=== PATIENT | male | born 1960 | race Caucasian/White ===

== ENCOUNTER 2021-04-13 18:07 | Inpatient (IN) | payer BC ==
[~2021-04-13] VITALS: Ht 182.9 cm; Wt 76.0 kg
--- NOTE | 2021-04-13 18:10 | NUR ---
Pt brought in by yuliana from [facility] for detox. Last drink 04/12/21. tremors present, no seizure reported. Pt [id number]
[2021-04-13] MEDS ORDERED: LISI40TA9 PO (18:20)
[2021-04-13] MEDS ORDERED: ATOR20TA37 PO (18:20)
[2021-04-13] MEDS ORDERED: MAGNESIUM SULFATE 1 GM, THIAMINE 100 MG, FOLIC ACID 1 MG, MVI ADULT 10 ML in SODIUM CHL... IV ONE (18:30)
[2021-04-13] MEDS ORDERED: SODIUM CHLORIDE FLUSH 10ML SYR IVF ONE (18:30)
[2021-04-13] MEDS ORDERED: CHLORDIAZEPOXIDE 25 MG CAPSULE PO ONE (18:30)
--- NOTE | 2021-04-13 18:34 | NUR ---
dara tran at bedside for eval
--- NOTE | 2021-04-13 18:47 | NUR ---
report to dany garcia
[2021-04-13 18:56] LABS: BASOPHILS % (AUTO) 0 % (0-1); EOSINOPHILS % (AUTO) 0 % (1-7); LYMPHOCYTES % (AUTO) 14 % (22-44); MEAN CORPUSCULAR HEMOGLOBIN 37.9 pg (27.5-34.5); MEAN CORPUSCULAR HGB CONC 34.6 g/dL (33.2-36.2); MEAN PLATELET VOLUME 8.2 fL (7.4-10.4); MONOCYTES % (AUTO) 8 % (2-9); NEUTROPHILS % (AUTO) 78 % (42-75); PLATELET COUNT 74 x10^3/uL (130-400); RED CELL DISTRIBUTION WIDTH 22.7 % (9.4-14.8)
--- NOTE | 2021-04-13 19:00 | NUR ---
REPORT FROM YAMILET ASHTON
[2021-04-13 19:02] LABS: ALANINE AMINOTRANSFERASE 21 U/L (12-78); ALBUMIN 3.3 g/dL (3.4-5.0); ANION GAP 12 mmol/L (5-15); CALCIUM 8.4 mg/dL (8.5-10.1); CHLORIDE 89 mmol/L (98-107); CREATININE 0.98 mg/dL (0.7-1.3)
[2021-04-13 19:05] LABS: ALKALINE PHOSPHATASE 140 U/L (45-117); BILIRUBIN,TOTAL 3.4 mg/dL (0.2-1.0); TOTAL PROTEIN 6.7 g/dL (6.4-8.2)
--- NOTE | 2021-04-13 19:30 | NUR ---
PT PROVIDED SANDWICH, OK PER ERP. PT DENIES ANY ADDITIONAL NEEDS AT THIS TIME. CALL LIGHT AND PERSONAL BELONGINGS WITHIN REACH.
[2021-04-13] MEDS ORDERED: LORazepam 2 MG/ML, 1ML ONE ×2 (19:57→21:17)
[2021-04-13] MEDS ORDERED: LORazepam 2 MG/ML, 1ML IVPush ONE (20:00)
--- NOTE | 2021-04-13 20:12 | NUR ---
HOSPITALIST AT BEDSIDE
[2021-04-13] MEDS ORDERED: CHLORDIAZEPOXIDE 10 MG CAPSULE PO SCH (20:30)
[2021-04-13] MEDS ORDERED: LORazepam 2 MG/ML, 1ML IV PRN ×3 (20:30)
[2021-04-13] MEDS ORDERED: THIAMINE 200 MG in DEXTROSE 5% 50 ML IVPB ONE (20:30)
[2021-04-13] MEDS ORDERED: GUAIFENESIN/DM 200-20MG, 10ML UDC PO PRN (20:30)
[2021-04-13] MEDS ORDERED: CHLORDIAZEPOXIDE 25 MG CAPSULE PO SCH (20:30)
[2021-04-13] MEDS ORDERED: ALUMINUM/MAG/SIMETHICONE 30 ML UDC PO PRN (20:30)
[2021-04-13] MEDS ORDERED: MELATONIN 5 MG TABLET PO PRN (20:30)
[2021-04-13] MEDS ORDERED: PROMETHAZINE 25 MG/ML, 1ML IM PRN (20:30)
[2021-04-13] MEDS ORDERED: ONDANSETRON 2MG/ML, 2ML IVPush PRN (20:30)
[2021-04-13] MEDS ORDERED: LABETALOL 5MG/ML, 20ML IVPush PRN (20:30)
--- NOTE | 2021-04-13 20:47 | NUR ---
US AT BEDSIDE
[2021-04-13] MEDS: LORazepam 2 MG/ML, 1ML IV PRN (21:19)
--- NOTE | 2021-04-13 21:22 | NUR ---
PT PLACED ON 2L O2 VIA NASAL CANNULA, ROOM AIR SAT 89% WHILE SLEEPING. O2 SAT NOW IMPROVED TO 96% ON 2L
--- NOTE | 2021-04-13 21:37 | NUR ---
PT PROVIDED URINAL PER REQUEST, IN ATTEMPT TO URINATE, PT URINATED ALL OVER SELF. REFUSING TO ALLOW THIS RN TO REMOVE WET SOILED CLOTHING AT THIS TIME. WILL RE-EVAL LATER. PT NOW RESTING CALMLY ON GURNEY WITH EYES CLOSED.
--- NOTE | 2021-04-13 22:04 | NUR ---
Pt to be admitted to [facility], room 502. Report called to DIMAS ASHTON.
[2021-04-13] MEDS: ATORVASTATIN 20 MG TABLET PO SCH (22:37)
[2021-04-13] MEDS: ENOXAPARIN 40 MG/0.4 ML SQ SCH (22:37)
[2021-04-13] MEDS: DIAZEPAM 10 MG TABLET PO SCH ×2 (22:37→22:38)
[2021-04-13 22:42] VITALS: BP 159/69
[2021-04-14 00:10] LABS: CREATININE,URINE RANDOM 28.6 mg/dL
[2021-04-14 01:01] VITALS: BP 157/92
[2021-04-14] MEDS: DIAZEPAM 10 MG TABLET PO SCH ×4 (03:06→20:28)
[2021-04-14 05:07] LABS: BASOPHILS % (AUTO) 1 % (0-1); EOSINOPHILS % (AUTO) 0 % (1-7); LYMPHOCYTES % (AUTO) 26 % (22-44); MEAN CORPUSCULAR HEMOGLOBIN 38.5 pg (27.5-34.5); MEAN CORPUSCULAR HGB CONC 34.8 g/dL (33.2-36.2); MEAN PLATELET VOLUME 8.6 fL (7.4-10.4); MONOCYTES % (AUTO) 8 % (2-9); NEUTROPHILS % (AUTO) 65 % (42-75); PLATELET COUNT 63 x10^3/uL (130-400); RED BLOOD COUNT 2.97 x10^6/uL (4.38-5.82); RED CELL DISTRIBUTION WIDTH 23.5 % (9.4-14.8)
[2021-04-14 05:17] LABS: INTERNATIONAL NORMALIZED RATIO 1.1 (0.93-1.1); PROTHROMBIN TIME 11.7 Seconds (9.6-11.5)
[2021-04-14 05:23] LABS: CHLORIDE 95 mmol/L (98-107)
[2021-04-14 05:33] LABS: ALANINE AMINOTRANSFERASE 21 U/L (12-78); ALBUMIN 2.9 g/dL (3.4-5.0); ALKALINE PHOSPHATASE 122 U/L (45-117); ANION GAP 9 mmol/L (5-15); BILIRUBIN,TOTAL 3.8 mg/dL (0.2-1.0); CALCIUM 8.1 mg/dL (8.5-10.1); CREATININE 0.59 mg/dL (0.7-1.3); TOTAL PROTEIN 6.2 g/dL (6.4-8.2)
[2021-04-14 05:58] LABS: <PLATELET ESTIMATE> DECREASED; <PLT MORPHOLOGY> NORMAL PLT MORPH; ANISOCYTOSIS 1+; STOMATOCYTES 1+
[2021-04-14] MEDS ORDERED: POTASSIUM CHLORIDE 20 MEQ, MAGNESIUM SULFATE 2 GM, THIAMINE 200 MG, FOLIC ACID 1 MG in ... IV SCH (06:00)
[2021-04-14 07:04] VITALS: BP 162/107
[2021-04-14] MEDS ORDERED: DIAZEPAM 5 MG TABLET ONE (08:37)
[2021-04-14] MEDS: LISINOPRIL 40 MG TABLET PO SCH (08:52)
[2021-04-14] MEDS ORDERED: POTASSIUM CHLORIDE 20 MEQ TAB.ER.PRT PO ONE (09:00)
[2021-04-14] MEDS ORDERED: MAGNESIUM SULFATE PMX 4GM/100M 100 ML IVPB ONE (09:00)
[2021-04-14] MEDS: NICOTINE 21 MG/24 HR PATCH.TD24 TD SCH (10:30)
[2021-04-14] MEDS: LORazepam 2 MG/ML, 1ML IV PRN ×4 (10:33→22:15)
[2021-04-14 12:13] VITALS: BP 112/77
[2021-04-14 19:13] VITALS: BP 122/81
[2021-04-14] MEDS: ATORVASTATIN 20 MG TABLET PO SCH (20:29)
[2021-04-14] MEDS: ENOXAPARIN 40 MG/0.4 ML SQ SCH (20:31)
[2021-04-15 00:57] VITALS: BP 129/90
[2021-04-15] MEDS: LORazepam 2 MG/ML, 1ML IV PRN (01:52)
[2021-04-15] MEDS ORDERED: LOPERAMIDE 2 MG CAPSULE PO PRN ×3 (05:00→10:30)
[2021-04-15 06:18] VITALS: BP 133/88
[2021-04-15] MEDS ORDERED: DIAZEPAM 5 MG TABLET ONE (06:20)
[2021-04-15] MEDS: POTASSIUM CHLORIDE 20 MEQ, MAGNESIUM SULFATE 2 GM, THIAMINE 200 MG, FOLIC ACID 1 MG in ... IV SCH (06:27)
[2021-04-15] MEDS: DIAZEPAM 10 MG TABLET PO SCH ×3 (06:28→18:29)
[2021-04-15] MEDS ORDERED: MAGNESIUM SULFATE PMX 4GM/100M 100 ML IVPB ONE (09:30)
[2021-04-15 09:45] VITALS: BP 133/89
[2021-04-15] MEDS: NICOTINE 21 MG/24 HR PATCH.TD24 TD SCH (09:51)
[2021-04-15] MEDS: LISINOPRIL 40 MG TABLET PO SCH (09:51)
[2021-04-15] MEDS: THIAMINE 100 MG in DEXTROSE 5% 50 ML IVPB SCH (09:52)
[2021-04-15 10:05] LABS: BASOPHILS % (AUTO) 1 % (0-1); EOSINOPHILS % (AUTO) 1 % (1-7); LYMPHOCYTES % (AUTO) 26 % (22-44); MEAN CORPUSCULAR HEMOGLOBIN 38.3 pg (27.5-34.5); MEAN CORPUSCULAR HGB CONC 34.3 g/dL (33.2-36.2); MEAN PLATELET VOLUME 9.2 fL (7.4-10.4); MONOCYTES % (AUTO) 8 % (2-9); NEUTROPHILS % (AUTO) 64 % (42-75); PLATELET COUNT 56 x10^3/uL (130-400); RED BLOOD COUNT 2.87 x10^6/uL (4.38-5.82); RED CELL DISTRIBUTION WIDTH 23.4 % (9.4-14.8)
[2021-04-15 10:09] LABS: ANION GAP 7 mmol/L (5-15); CALCIUM 8.3 mg/dL (8.5-10.1); CHLORIDE 100 mmol/L (98-107); CREATININE 0.65 mg/dL (0.7-1.3)
[2021-04-15 13:51] VITALS: BP 122/79
[2021-04-15] MEDS: POTASSIUM CHLORIDE 20 MEQ TAB.ER.PRT PO SCH (17:11)
[2021-04-15 19:22] VITALS: BP 127/88
[2021-04-15] MEDS: ATORVASTATIN 20 MG TABLET PO SCH (20:31)
[2021-04-15] MEDS: ENOXAPARIN 40 MG/0.4 ML SQ SCH (20:31)
[2021-04-16 02:34] VITALS: BP 117/77
[2021-04-16 05:08] LABS: ALBUMIN 2.4 g/dL (3.4-5.0); ANION GAP 5 mmol/L (5-15); CALCIUM 8.8 mg/dL (8.5-10.1); CHLORIDE 104 mmol/L (98-107)
[2021-04-16 05:13] LABS: ALANINE AMINOTRANSFERASE 17 U/L (12-78); ALKALINE PHOSPHATASE 94 U/L (45-117); BILIRUBIN,TOTAL 0.8 mg/dL (0.2-1.0); CREATININE 0.51 mg/dL (0.7-1.3); TOTAL PROTEIN 5.6 g/dL (6.4-8.2)
[2021-04-16 05:14] LABS: BASOPHILS % (AUTO) 1 % (0-1); EOSINOPHILS % (AUTO) 1 % (1-7); LYMPHOCYTES % (AUTO) 37 % (22-44); MEAN CORPUSCULAR HEMOGLOBIN 38.4 pg (27.5-34.5); MEAN CORPUSCULAR HGB CONC 33.9 g/dL (33.2-36.2); MEAN PLATELET VOLUME 10.3 fL (7.4-10.4); MONOCYTES % (AUTO) 8 % (2-9); NEUTROPHILS % (AUTO) 52 % (42-75); PLATELET COUNT 60 x10^3/uL (130-400); RED BLOOD COUNT 2.59 x10^6/uL (4.38-5.82); RED CELL DISTRIBUTION WIDTH 22.9 % (9.4-14.8)
[2021-04-16] MEDS: POTASSIUM CHLORIDE 20 MEQ, MAGNESIUM SULFATE 2 GM, THIAMINE 200 MG, FOLIC ACID 1 MG in ... IV SCH (05:34)
[2021-04-16] MEDS: POTASSIUM CHLORIDE 20 MEQ TAB.ER.PRT PO SCH ×2 (07:57→16:35)
[2021-04-16] MEDS: NICOTINE 21 MG/24 HR PATCH.TD24 TD SCH (07:57)
[2021-04-16] MEDS: LISINOPRIL 40 MG TABLET PO SCH (07:57)
[2021-04-16] MEDS: LORazepam 0.5MG TABLET PO PRN ×4 (07:57→20:19)
[2021-04-16] MEDS ORDERED: LORazepam 1MG TABLET PO PRN ×3 (08:00)
[2021-04-16 08:09] VITALS: BP 138/91
[2021-04-16] MEDS: THIAMINE 100 MG in DEXTROSE 5% 50 ML IVPB SCH (09:01)
[2021-04-16 12:58] VITALS: BP 140/97
[2021-04-16 19:05] VITALS: BP 158/99
[2021-04-16] MEDS: ENOXAPARIN 40 MG/0.4 ML SQ SCH (20:15)
[2021-04-16] MEDS: ATORVASTATIN 20 MG TABLET PO SCH (20:19)
[2021-04-17] MEDS: LORazepam 0.5MG TABLET PO PRN ×3 (01:17→09:37)
[2021-04-17 01:20] VITALS: BP 162/97
[2021-04-17 06:08] LABS: BASOPHILS % (AUTO) 1 % (0-1); EOSINOPHILS % (AUTO) 1 % (1-7); LYMPHOCYTES % (AUTO) 30 % (22-44); MEAN CORPUSCULAR HEMOGLOBIN 38.4 pg (27.5-34.5); MEAN PLATELET VOLUME 10.1 fL (7.4-10.4); MONOCYTES % (AUTO) 8 % (2-9); NEUTROPHILS % (AUTO) 60 % (42-75); PLATELET COUNT 72 x10^3/uL (130-400); RED CELL DISTRIBUTION WIDTH 23.7 % (9.4-14.8)
[2021-04-17 06:19] LABS: ALANINE AMINOTRANSFERASE 24 U/L (12-78); ALBUMIN 2.7 g/dL (3.4-5.0); ANION GAP 6 mmol/L (5-15); CALCIUM 8.8 mg/dL (8.5-10.1); CHLORIDE 101 mmol/L (98-107); CREATININE 0.45 mg/dL (0.7-1.3)
[2021-04-17 06:21] LABS: ALKALINE PHOSPHATASE 103 U/L (45-117); BILIRUBIN,TOTAL 0.7 mg/dL (0.2-1.0); TOTAL PROTEIN 6.3 g/dL (6.4-8.2)
[2021-04-17 08:36] VITALS: BP 143/84
[2021-04-17] MEDS: NICOTINE 21 MG/24 HR PATCH.TD24 TD SCH (08:40)
[2021-04-17] MEDS: POTASSIUM CHLORIDE 20 MEQ TAB.ER.PRT PO SCH (08:40)
[2021-04-17] MEDS: LISINOPRIL 40 MG TABLET PO SCH (08:40)
[2021-04-17] MEDS ORDERED: LOPE2CAP PO (09:01)
[2021-04-17] MEDS: THIAMINE 100 MG in DEXTROSE 5% 50 ML IVPB SCH (09:37)
[2021-04-17] MEDS ORDERED: MAGNESIUM SULFATE PMX 4GM/100M 100 ML IVPB ONE (11:00)
[2021-04-17 11:42] VITALS: BP 133/87
[2021-04-17 12:58] VITALS: BP 117/79
[2021-04-17] MEDS: LORazepam 1MG TABLET PO PRN ×2 (14:04→20:01)
[2021-04-17 18:31] VITALS: BP 139/83
[2021-04-17] MEDS: ENOXAPARIN 40 MG/0.4 ML SQ SCH (20:01)
[2021-04-17] MEDS: ATORVASTATIN 20 MG TABLET PO SCH (20:01)
[2021-04-18 00:25] VITALS: BP 132/83
[2021-04-18] MEDS: LORazepam 0.5MG TABLET PO PRN ×2 (00:44→09:05)
[2021-04-18 04:36] LABS: ALBUMIN 2.6 g/dL (3.4-5.0); ANION GAP 6 mmol/L (5-15); CALCIUM 8.8 mg/dL (8.5-10.1); CHLORIDE 100 mmol/L (98-107)
[2021-04-18 04:40] LABS: ALANINE AMINOTRANSFERASE 23 U/L (12-78); ALKALINE PHOSPHATASE 97 U/L (45-117); BILIRUBIN,TOTAL 0.7 mg/dL (0.2-1.0); CREATININE 0.51 mg/dL (0.7-1.3); TOTAL PROTEIN 6.4 g/dL (6.4-8.2)
[2021-04-18 06:29] VITALS: BP 137/90
[2021-04-18] MEDS: LISINOPRIL 40 MG TABLET PO SCH (09:05)
[2021-04-18] MEDS: THIAMINE 100 MG in DEXTROSE 5% 50 ML IVPB SCH (09:06)
[2021-04-18] MEDS: NICOTINE 21 MG/24 HR PATCH.TD24 TD SCH (09:06)
== END 2021-04-18 13:05 | DRG 92 ==
LOC: ED 20:38 → EDIP 21:14 → 5SO 22:19 → 3N 04-15 11:58 → DCLOUNGE 04-18 13:02
PROVIDERS: ADMIT Internal Medicine; ATTEND Hospitalist
DX: R25.1 Tremor, unspecified (principal); E87.1 Hypo-osmolality and hyponatremia; F10.139 Alcohol abuse with withdrawal, unspecified; D53.9 Nutritional anemia, unspecified; E78.5 Hyperlipidemia, unspecified; E83.42 Hypomagnesemia; E87.6 Hypokalemia; K76.0 Fatty (change of) liver, not elsewhere classified; Y90.0 Blood alcohol level of less than 20 mg/100 ml; Z91.018 Allergy to other foods
CPT/HCPCS: 36415; 99291; J7042; 76700; 80048; 80053; 80320; 82570; 83735; 83930; 83935; 84100; 84300; 85025; 85610; G0378; J1650; J3411; J3475; J3480; G0480; J2060; J7030